=== PATIENT | female | born 1975 | race Caucasian/White ===

== ENCOUNTER 2022-03-15 14:19 | Emergency (ER) | payer MEDICAID, SELFPAY ==
[2022-03-15 14:29] VITALS: BP 137/82; PULSE 122; RESP 18; TEMP 35.6; O2SAT 98; BMI 40.2
--- NOTE | 2022-03-15 14:58 | ED.GENADULT ---
HPI - General Adult General Chief complaint: Extremity Pain/Injury, Upper Stated complaint: Shooting Right Arm Pain Time Seen by Provider: 03/15/22 14:26 Source: patient Mode of arrival: ambulatory Limitations: no limitations History of Present Illness HPI narrative: [age] year female coming in today complaining of arm pain started yesterday. She noticed upper right arm pain sometime in the morning that started off slowly and progressively got worse throughout the day. She had a hard time sleeping at night because of the pain. The pain stays mostly in the upper arm, is circumferential. Discomfort does shoot down the arm all the way to the hand makes the hand feel numb, all fingers are involved. Moving the arm makes the pain more uncomfortable. She denies any fevers or chills, no changes in her appetite. No unintentional weight changes. No nausea or vomiting. She denies any chest pain or shortness of breath. She denies pain of the other arm. He states last night her bilateral lower extremities felt restless but if she got up and walked around this sensation went away, however the arm stays uncomfortable and painful. She denies any weakness of the arm. She denies any trauma, falling. 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 Related Data Previous Rx's Medication Instructions Recorded methylprednisolone 4 mg tablets in See Rx Instructions PO .COMPLEX 03/15/22 a dose pack (Medrol (Gaurang)) #21 ea Allergies Allergy/AdvReac Type Severity Reaction Status Date / Time No Known Drug Allergies Allergy Verified 03/15/22 14:36 Review of Systems Status of ROS: Reports: 10 or more systems reviewed and unremarkable except as noted in History and below Exam Narrative: Exam Narrative: Overweight, well-developed patient in no acute distress. Alert and oriented. Answers questions appropriately. Mood and affect are appropriate. Thoughts are goal oriented and rational. No tangential or magical thinking noted. Patient speaks in full sentences without needing to catch her breath. HEENT: Normocephalic atraumatic. Pupils are equally round reactive to light. Extraocular muscles are intact. Conjunctivae are moist without any icterus noted. Moist mucous membranes. Posterior pharynx is normal. Neck is soft without any lymphadenopathy or thyromegaly. No masses are appreciated. Cardiovascular: Heart is regular rate and rhythm S1 and S2 are present without any murmurs. Lungs: Clear to auscultation bilaterally no wheezes rhonchi or rales are appreciated. Patient takes deep breaths without any discomfort. Abdomen: Soft and nontender nondistended with normal bowel sounds. Extremities: Shoulders and normal appearance bilaterally without any contour abnormalities. Skin looks normal over the shoulder and arms. She has no tenderness to palpation over the right shoulder upper arm elbow forearm wrist or hand. Strength of that shoulder is normal with normal abduction, flexion and extension in the plane of the body. She has normal strength at the elbow and wrist. She has full range of motion, able to extend the arm fully above her head. Lift-off is negative. There are no signs of impingement noted. She can flex, extend, side way bend and rotate at the neck without exacerbation of her arm pain. Negative Tinel's and Phalen sign. Const: Vital Signs, click to edit/add: Vital Signs - 24 hr 03/15/22 14:29 Temperature 96.1 F L Pulse Rate [Right Pulse Oximeter] 122 H Respiratory Rate 18 Blood Pressure [Ri ght Upper Arm] 137/82 Pulse Oximetry 98 Oxygen Delivery Me thod Room Air Course Vital Signs Vital signs: Initial Vital Signs Temperature 96.1 F L 03/15/22 14:29 Temperature Source Temporal Artery Scan 03/15/22 14:29 Pulse Rate 122 H 03/15/22 14:29 Respiratory Rate 18 03/15/22 14:29 Blood Pressure 137/82 03/15/22 14:29 Blood Pressure Mean 100 03/15/22 14:29 Blood Pressure Position Sitting 03/15/22 14:29 Pulse Oximetry 98 03/15/22 14:29 Oxygen Delivery Method 03/15/22 14:29 Vital Signs Temperature 96.1 F L 03/15/22 14:29 Pulse Rate 122 H 03/15/22 14:29 Respiratory Rate 18 03/15/22 14:29 Blood Pressure 137/82 03/15/22 14:29 Pulse Oximetry 98 03/15/22 14:29 Oxygen Delivery Method 03/15/22 14:29 Temperature 96.1 F L 03/15/22 14:29 Pulse Rate 122 H 03/15/22 14:29 Respiratory Rate 18 03/15/22 14:29 Blood Pressure 137/82 03/15/22 14:29 Pulse Oximetry 98 03/15/22 14:29 Oxygen Delivery Method 03/15/22 14:29 Medical Decision Making MDM Narrative Medical decision making narrative: 46-year-old female with arm pain, question a brachial plexopathy. At this point will start the patient on steroid treatment to see if we can resolve her symptoms. I do want her to follow up with her primary care provider early next week for a follow-up. Patient was agreeable with everything we discussed had no other questions. Discharge Plan Discharge Clinical Impression: Brachial plexopathy Patient Disposition: Home, Self-Care Condition: Stable Additional Instructions: Take all steroid as prescribed. Follow-up with your primary care provider early next week. Return to the ER if your symptoms get significantly worse. Prescriptions: New methylprednisolone [Medrol (Gaurang)] 4 mg tablets,dose pack See Rx Instructions .ROUTE .COMPLEX Qty: 21 0RF Rx Instructions: orally per package directions Stand Alone Forms: [employer] Info Instructions
== END 2022-03-15 15:43 | disposition home or self-care (01) ==
LOC: ED 15:38
PROVIDERS: Emergency Provider Family Medicine
DX: G54.0 Brachial plexus disorders (principal)
CPT/HCPCS: 99283; 99284